=== PATIENT | female | born 1985 | race Caucasian/White ===

== ENCOUNTER 2016-11-19 04:06 | Emergency (ER) | payer MEDICAID ==
--- NOTE | ~2016-11-19 | ER ---
PATIENT'S NAME: HOA MANRIQUEZ [facility] AGE: 31 Y [address] ROOM: [place] [address] LOCATION: [facility] ADMIT DATE: 11/19/2016 ER/Outpatient Report DISCHARGE DATE: FAMILY PHYSICIAN: PHYSICIAN, NO ATTENDING PHYSICIAN: Emili Butler HISTORY OF PRESENT ILLNESS: A 31-year-old female, who is right-hand dominant presents with left wrist injury. She fell down while going down the stairs, while going outside to smoke a cigarette, fell, had a flu shot in that left hand. Max pain is along the proximal thumb and the medial wrist. She says she is unable to flex it secondary to pain. No other complaints at this time. No numbness or tingling. No nausea or vomiting. No other complaints. PAST MEDICAL HISTORY: She has a heart murmur. SURGICAL HISTORY: Some sort of ankle surgery. MEDICATIONS: None. ALLERGIES: CODEINE. SOCIAL HISTORY: She smokes. ROS: Reviewed by me negative with the exception of those discussed in the HPI. PHYSICAL EXAMINATION: VITAL SIGNS: The patient is 411, she weights 64 kilos, blood pressure 117/69, heart rate 84, respiratory rate 18, temperature is 97.4, and saturations are 96%. GENERAL: She looks comfortable. She is not in any acute distress. She is cradling her left hand, though she is holding it at her mid forearm and holding it up not moving her hand. She saw the wrist. She has tenderness over the medial malleolus and also positive for snuffbox tenderness, although she does not really have pain on axial loading of the thumb. She has intact sensation in the radial, ulnar, and median distributions though. EMERGENCY ROOM COURSE: An x-ray was done. On my read, I do not see any cortex break. I do not see PATIENT'S NAME: HOA MANRIQUEZ [facility] AGE: 31 Y [address] ROOM: [place] [address] LOCATION: [facility] ADMIT DATE: 11/19/2016 ER/Outpatient Report DISCHARGE DATE: FAMILY PHYSICIAN: PHYSICIAN, NO ATTENDING PHYSICIAN: Emili Butler any fracture there, but given that she has tenderness in the snuffbox area, we will put her in a thumb spica and give her some ibuprofen. She can try ice and ibuprofen at home. She should have followup x-rays in about a week. She understands the reason to come back to the ER sooner. IMPRESSION: Wrist injury. MD JULIET HUSSEIN/awais /[id number] d: 11/19/16 0545 t: 11/22/16 1818, OUTPATIENT REPORT
== END 2016-11-19 04:52 | disposition disaster alternative care site (69) ==
LOC: GACC 04:06
PROC: 2W3DX1Z Immobilization of Left Lower Arm using Splint (ICD-10-PCS; principal; 2016-11-19)
DX: S69.92XA Unspecified injury of left wrist, hand and finger(s), initial encounter (principal); W10.9XXA Fall (on) (from) unspecified stairs and steps, initial encounter

== ENCOUNTER 2016-11-21 15:14 | Emergency (ER) | payer MEDICAID ==
--- NOTE | ~2016-11-21 | ER ---
[facility] 31 [facility] [address] ROOM: [place] [address] LOCATION: [facility] ADMIT DATE: 11/21/2016 ER/Outpatient Report DISCHARGE DATE: 11/21/2016 FAMILY PHYSICIAN: PHYSICIAN, NO ATTENDING PHYSICIAN: Alberto Munoz TIME OF PATIENT ARRIVAL: 1514 hours. TIME OF PATIENT EVALUATION: 1535 hours. CHIEF COMPLAINT: Left wrist and hand pain. HISTORY OF PRESENT ILLNESS: This is a 31-year-old female who presents to the ER, who states that she injured her left wrist and hand on 11/19/2016. She states that she was evaluated here in the emergency room and they did x-rays. They told her that the x-ray was negative. They placed her in a thumb spica splint and she was told to follow up with primary care physician. The patient states that her pain is not getting any better. She does not believe that her x-ray did not show a fracture and wants to be re-evaluated. ALLERGIES: CODEINE. MEDICATIONS: None. PAST MEDICAL HISTORY: Heart murmur. PAST SURGERIES: Ankle surgery. SOCIAL HISTORY: Smokes a half pack to a pack a day for the last 4 years. Denies any drug or alcohol use. REVIEW OF SYSTEMS: CONSTITUTIONAL: Denies change in weight or fatigue. MUSCULOSKELETAL: Complaining of left hand and wrist pain. HEMATOLOGIC: No easy bruising or bleeding. SKIN: No lesions or rashes. PATIENT'S NAME: HOA MANRIQUEZ [facility] AGE: 31 Y [address] ROOM: [place] [address] LOCATION: [facility] ADMIT DATE: 11/21/2016 ER/Outpatient Report DISCHARGE DATE: 11/21/2016 FAMILY PHYSICIAN: PHYSICIAN, NO ATTENDING PHYSICIAN: Alberto Munoz PHYSICAL EXAMINATION: VITAL SIGNS: Weight 63.6 kg, taken blood pressure is 112/66, pulse 84, respirations 18, temperature 98.6 degrees tympanically, and saturations 95% on room air. [place] Coma Score is 15. GENERAL: Alert, anxious appearing 31-year-old and mild distress. EXTREMITIES: No clubbing or cyanosis. She did have her thumb spica splint on, fairly tight. She does have some increased nunes under skin from that and some swelling along her knuckles where her thumb spica splint ended. She does have tenderness over all aspects of her left forearm and into her metacarpals. She has tenderness over all 1, 2, 3, 4, and 5 metacarpals. She refuses to do any sort of the range of motion secondary to pain. She does have a good pulse to her left upper extremity. She has good capillary refill. I do not appreciate any ecchymosis noted to the hand. LABORATORY DATA: None were done. X-rays of the left wrist and hand were done and no fracture was seen. This was over-read by myself Dr. Munoz and Dr. Isabel. IMPRESSION: Left wrist and hand injury from fall. ASSESSMENT AND PLAN: We did give the patient reassurance. Once we had a thumb spica splint off for a while, her swelling went away and increased nunes under skin did improve. We did reapply the thumb spica splint with looser pressure for comfort. I will dismiss her to home with some Ultram to use as directed. She needs to continue to ice and elevate the arm and she should follow up with primary care physician for followup care. I did give her business card for the [facility] specialist for followup care. The patient understands and agrees with care. DARRYL WISEMAN PA-C FOR MD MICHELLE ESTRADA/awais /[id number] d: t: 11/25/16 1231, OUTPATIENT REPORT
== END 2016-11-21 17:10 | disposition disaster alternative care site (69) ==
LOC: GACC 15:14
DX: S69.92XA Unspecified injury of left wrist, hand and finger(s), initial encounter (principal); F17.210 Nicotine dependence, cigarettes, uncomplicated; Z88.8 Allergy status to other drugs, medicaments and biological substances; W19.XXXA Unspecified fall, initial encounter